=== PATIENT | male | born 1945 | race Caucasian/White ===

== ENCOUNTER 2024-11-26 14:05 | Emergency (ER) | payer MEDICARE, OTHER ==
[~2024-11-26] VITALS: Ht 185.4 cm; Wt 100.0 kg
[~2024-11-26 14:05] MED LIST: ALEVE220 M1 PO; CALCIUM 600 +1 EACH PO; CENTRUM SILVER1 EAC6 PO; FISH OIL 1,2001 EACH PO; FLOMAX0.4 MG PO; GLUCOSAMINE-CH1 EA22 PO; LIPITOR40 MG PO; LUTEIN-ZEAXANT1 EACH PO; MAG-TAB SR84 MG PO; NORCO 10-325 T1 EACH PO; NORCO 5-325 TA1 EACH PO; POTASSIUM99 M1 PO; ZINC CHELATED50 MG PO
[2024-11-26 15:37] VITALS: BP 129/94
== END 2024-11-26 15:37 | disposition home or self-care (01) ==
LOC: ED 14:05
DX: M25.562 Pain in left knee (principal); X50.0XXA Overexertion from strenuous movement or load, initial encounter; Z79.899 Other long term (current) drug therapy
CPT/HCPCS: 73560; 99283